=== PATIENT | male | born 1985 | race African-American/Black ===

== ENCOUNTER 2024-09-12 09:18 | Emergency (ER) | payer MEDICAID, SELFPAY ==
[2024-09-12 09:18] VITALS: BP 149/76; BMI 25.9
--- NOTE | 2024-09-12 09:47 | EDRN ---
psychiatry and crisis consult placed
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
--- NOTE | 2024-09-12 10:18 | EDRN ---
per the provider, they wanted the pt in paper scrubs, this RN and Sourav from security spoke to the pt and explained that he should change into paper scrubs, the pt was agreeable this time however the pts requested help, this RN and 4 security
guards were at the pts bedside and assisted the pt with changing into paper scrubs, patient belongings were given to security, the pt was calm and cooperative, the pt would not open his eyes during the interaction, the pt is resting in stretcher in
the lowest position, side rails up, HOB elevated, no s/s of distress, one to one observation maintained, mental health vp security outside of the pts room, will continue to monitor the pt closely
--- NOTE | 2024-09-12 10:22 | EDRN ---
this RN asked the pt if he felt like he had to urinate, the pt stated no, this RN educated the pt that when he needs to urinate to notify staff and to urinate into a cup to be sent to the lab, the pt verbally stated that he was agreeable to this
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
== END 2024-09-12 13:01 ==
LOC: EMR 09:18
PROVIDERS: CONSULT PHYSICIAN Psychiatry & Neurology Psychiatry; EMERGENCY PHYSICIAN Emergency Medicine
DX: F20.9 Schizophrenia, unspecified (principal); F19.10 Other psychoactive substance abuse, uncomplicated; Z59.9 Problem related to housing and economic circumstances, unspecified; Z91.148 Patient's other noncompliance with medication regimen for other reason
CPT/HCPCS: 99284